=== PATIENT | male | born 1950 | race Caucasian/White ===

== ENCOUNTER 2016-07-18 11:53 | Emergency (ER) | payer OTHER, MEDICARE ==
[~2016-07-18] VITALS: Ht 175.3 cm; Wt 90.7 kg
[2016-07-18 12:05] VITALS: BP 142/77
--- NOTE | 2016-07-18 12:41 | ED HEAD/FACIAL INJ COMPLAINT ---
History of Present Illness General Chief Complaint: Fall Stated Complaint: FALL HEAD STRIKE Source: patient, family, old records Exam Limitations: no limitations Vital Signs & Intake/Output Vital Signs & Intake/Output Vital Signs Date Time Temp Pulse Resp B/P B/P Pulse O2 O2 Flow FiO2 Mean Ox Delivery Rate 07/18 1205 98.9 65 15 142/77 100 Room Air Allergies Coded Allergies: cephalexin (From KEFLEX) (Intermediate, NAUSEA 07/18/16) latex (Mild, UNKNOWN 07/18/16) Triage Note: PT TO ED FOR FALL AND HEADSTRIKE ON COUMADIN. PT REPORTS HE WAS HIKING AND WAS ATTEMPTING TO CROSS A STREAM, SLIPPED AND HIT HEAD ON A ROCK, UNSURE OF LOC, PT STATING "I THINK I REMEMBER EVERYTHING" SMALL AMOUNT OF BRUISING TO L ZOROASTRIANISM. ALL NEUROS GROSSLY INTACT, SMALL ABRASIONS TO L ARM AND HAND NOTED. Triage Nurses Notes Reviewed? yes Onset: Just prior to arrival Severity: mild Location: temporal Method of Injury: direct blow, fall Loss of Consciousness: dazed HPI: Prior to admission patient was hiking crusted broke lost his balance and fell onto his left side striking his left congregational hip and left hand. He sustained bruising to his left hip abrasions to the left hand. He went home and changed prior to admission. He reports being dazed without loss of consciousness. He denies fever chills nausea vomiting diarrhea abdominal pain chest pain shortness breath headache dysuria. Past History Travel History Traveled to [place] past 21 day No Medical History Any Pertinent Medical History? see below for history Neurological: NONE EENT: CATARACT Cardiovascular: AFIB, hypertension, CARDIAC ABLATION HIGH CHOLESTEROL Respiratory: SLEEP APNEA NARCOLEPSY Gastrointestinal: NONE Hepatic: NONE Renal: NONE Musculoskeletal: BACK SURGERY Psychiatric: NONE Endocrine: NONE Blood Disorders: NONE Cancer(s): NONE Surgical History Surgical History: non-contributory Psychosocial History What is your primary language Czech Tobacco Use: Never used ETOH Use: occasional use Illicit Drug Use: denies illicit drug use Family History Hx Contributory? No Review of Systems Review of Systems Constitutional: Reports: no symptoms. EENTM: Reports: no symptoms. Respiratory: Reports: no symptoms. Cardiovascular: Reports: no symptoms. GI: Reports: no symptoms. Genitourinary: Reports: no symptoms. Musculoskeletal: Reports: see HPI, joint pain. Skin: Reports: see HPI. Neurological/Psychological: Reports: no symptoms. Hematologic/Endocrine: Reports: no symptoms. Immunologic/Allergic: Reports: no symptoms. All Other Systems: Reviewed and Negative Physical Exam Physical Exam General Appearance: well developed/nourished, mild distress Head: normal appearance, contusions (L tenple) Eyes: Bilateral: PERRL, EOMI. Ears, Nose, Throat: normal pharynx, normal ENT inspection, hearing grossly normal Neck: normal inspection, supple Respiratory: normal breath sounds Cardiovascular: normal peripheral pulses, irregularly irregular, norml femoral pulses equa Gastrointestinal: soft, non-tender Back: normal inspection Extremities: normal inspection, normal range of motion, no edema Psychiatric: awake, alert, oriented x 3 Cranial Nerves: normal hearing, normal speech, PERRL Coordination/Gait: normal finger to nose, normal gait Motor/Sensory: no motor/sensory deficits Reflexes: 2+: bicep (R), bicep (L), tricep (R), tricep (L). Skin: normal color, warm/dry, abrasions dorsum L hand Lymphatic: no anterior cervical heather Progress Differential Diagnosis: ICH, skull fracture Plan of Care: Orders Procedure Date/time Status PROTHROMBIN TIME 07/18 1237 Complete Laboratory Tests 07/18/16 1251: PT 35.2 H, INR 3.39 H Diagnostic Imaging: Viewed by Me: CT Scan ([facility]). Discussed w/RAD: CT Scan ([facility]). Radiology Impression: no acute abnormality, no fracture, no dislocation Departure Departure Time of Disposition: 1514 Disposition: HOME OR SELF CARE Condition: Stable Clinical Impression Primary Impression: Minor head injury without loss of consciousness Qualifiers: Encounter type: subsequent encounter Qualified Code: S09.90XD - Unspecified injury of head, subsequent encounter Secondary Impressions: Abrasion hand Qualifiers: Encounter type: initial encounter Laterality: left Qualified Code: S60.512A - Abrasion of left hand, initial encounter Referrals: NATHALY EAGLE,ANA Pascual (PCP/Family) Additional Instructions: Adjust your coumadin as discussed. Departure Forms: Customer Survey General Discharge Information
[2016-07-18 13:03] LABS: PT 35.2 SEC (9.4-12.5)
== END 2016-07-18 15:17 ==
LOC: ERH 11:53
PROVIDERS: Emergency Medicine
DX: S09.90XA Unspecified injury of head, initial encounter (principal); S60.512A Abrasion of left hand, initial encounter; Z79.01 Long term (current) use of anticoagulants; W19.XXXA Unspecified fall, initial encounter; Y93.01 Activity, walking, marching and hiking; Y92.9 Unspecified place or not applicable